=== PATIENT | male | born 1970 | race Caucasian/White ===

== ENCOUNTER 2017-12-14 21:24 | Emergency (ER) | payer MEDICAID ==
[~2017-12-14] VITALS: Ht 185.4 cm; Wt 81.6 kg
[~2017-12-14 21:24] MED LIST: SULF1TAB48 PO
[2017-12-15] MEDS ORDERED: hydrALAZINE HCL 10 MG TABLET PO ONE
--- NOTE | 2017-12-15 | NUR ---
BIBSELF C/O LEFT FOOT SWELLING TODAY, WAS D/C 11/28/17 FROM [facility] DX CELLULITIS/HTN. HYPERTENSION BUT OTHERWISE VSS NO ACUTE DISTRESS NOTED AT THIS TIME. SKIN WARM AND INTACT. PT IS ALERT AND ORIENTED X4 ABLE TO MAKE NEEDS KNOWN. WILL CONTINUE TO MONITOR FOR ANY CHANGES DURING THE SHIFT.
--- NOTE | 2017-12-15 00:01 | NUR ---
ER LAITH JARAMILLO AT BEDSIDE FOR EVAL
[2017-12-15] MEDS ORDERED: hydrALAZINE HCL IV 20 MG VIAL ONE (00:11)
--- NOTE | 2017-12-15 00:11 | NUR ---
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
[2017-12-15 00:21] LABS: BASOPHILS # (AUTO) 0.1 /CMM (0.0-0.2); BASOPHILS % (AUTO) 1.2 % (0.0-2.0); EOSINOPHILS % (AUTO) 2.7 % (0.0-6.0); HEMATOCRIT 40 % (39-51); HEMOGLOBIN 13.6 g/dL (13.5-17.5); LYMPHOCYTES # (AUTO) 0.9 /CMM (0.8-4.8); MEAN CORPUSCULAR HGB CONC 34 g/dl (31.0-36.0); MEAN CORPUSCULAR VOLUME 90 fL (80-96); MONOCYTES # (AUTO) 0.5 /CMM (0.1-1.30); MONOCYTES % (AUTO) 10.2 % (2.0-12.0); NEUTROPHILS # (AUTO) 3.2 /CMM (1.8-8.9); NEUTROPHILS % (AUTO) 66.9 % (43.0-81.0); PLATELET COUNT (AUTO) 209 /CMM (150-450); RED BLOOD CELL COUNT(AUTO) 4.45 MIL/uL (4.5-6.0); WHITE BLOOD COUNT (AUTO) 4.8 K/uL (4.3-11.0)
[2017-12-15] MEDS: hydrALAZINE HCL IV 20 MG VIAL IV ONE ×2 (00:31→00:32)
[2017-12-15 00:33] LABS: CALCIUM, SERUM 8.9 mg/dL (8.5-10.1); CREATININE 1.1 mg/dL (0.6-1.3); POTASSIUM 3.5 mmol/L (3.5-5.1)
--- NOTE | 2017-12-15 00:33 | NUR ---
VENOUS DUPLEX AT BEDSIDE
[2017-12-15 00:39] LABS: ALBUMIN 3.5 g/dL (3.4-5.0); BILIRUBIN,DIRECT 0.1 mg/dL (0.0-0.2); BILIRUBIN,TOTAL 0.3 mg/dL (0.2-1.0)
[2017-12-15 01:49] VITALS: BP 178/101
== END 2017-12-15 01:51 | disposition home or self-care (01) ==
LOC: ER 21:24
DX: R60.0 Localized edema (principal); Z60.2 Problems related to living alone
CPT/HCPCS: 36415; 80048-TC; 80076-TC; 85025-TC; 85730-TC; 93971-TC; A4606; J0360; Z7610

== ENCOUNTER 2018-05-16 14:52 | Emergency (ER) | payer SELFPAY ==
[~2018-05-16] VITALS: Ht 185.4 cm; Wt 92.5 kg
[2018-05-16] MEDS ORDERED: CEFTRIAXONE 1GM BAG (ER ONLY) 50 ML IV ONE (15:30)
[2018-05-16 15:49] LABS: BASOPHILS # (AUTO) 0.1 /CMM (0.0-0.2); BASOPHILS % (AUTO) 0.9 % (0.0-2.0); EOSINOPHILS % (AUTO) 1.2 % (0.0-6.0); HEMATOCRIT 40 % (39-51); HEMOGLOBIN 13.4 g/dL (13.5-17.5); LYMPHOCYTES # (AUTO) 0.9 /CMM (0.8-4.8); LYMPHOCYTES % (AUTO) 15.5 % (20.0-44.0); MEAN CORPUSCULAR HGB CONC 34 g/dl (31.0-36.0); MEAN CORPUSCULAR VOLUME 89 fL (80-96); MONOCYTES # (AUTO) 0.3 /CMM (0.1-1.30); MONOCYTES % (AUTO) 5.6 % (2.0-12.0); NEUTROPHILS # (AUTO) 4.7 /CMM (1.8-8.9); NEUTROPHILS % (AUTO) 76.8 % (43.0-81.0); PLATELET COUNT (AUTO) 225 /CMM (150-450); RED BLOOD CELL COUNT(AUTO) 4.45 MIL/uL (4.5-6.0); WHITE BLOOD COUNT (AUTO) 6.1 K/uL (4.3-11.0)
[2018-05-16 15:56] LABS: CALCIUM, SERUM 8.9 mg/dL (8.5-10.1); CREATININE 0.9 mg/dL (0.6-1.3); POTASSIUM 3.7 mmol/L (3.5-5.1)
--- NOTE | 2018-05-16 16:01 | NUR ---
ADDENDUM: Intravenous End Time Documentation: Rocephin 1 gram IVPB: start time: 1601 pm; end time: 1631 pm IV site: [facility] 18 Port # 1
[2018-05-16 16:02] LABS: ALBUMIN 3.4 g/dL (3.4-5.0); BILIRUBIN,DIRECT 0.1 mg/dL (0.0-0.2); BILIRUBIN,TOTAL 0.4 mg/dL (0.2-1.0); TOTAL PROTEIN, SERUM 7.6 g/dL (6.4-8.2)
[2018-05-16] MEDS ORDERED: BACITRACIN ZINC OINT PACKET 1 EA PACKET TP ONE (16:30)
[2018-05-16 16:58] VITALS: BP 170/100
--- NOTE | 2018-05-16 16:58 | NUR ---
DR HULL MADE AWARE OF PT'S RECENT B/P.
== END 2018-05-16 19:59 | disposition home or self-care (01) ==
LOC: ER 14:56
DX: L03.116 Cellulitis of left lower limb (principal); Z59.0 Homelessness
CPT/HCPCS: 36415; 80048; 80076; 85025; 85730; 87040 ×2; 87070; 87077; 87186; 93971; 96365; 99284; J0696

== ENCOUNTER 2018-05-25 11:00 | Outpatient (CLI) | payer SELFPAY | END 2018-05-25 23:59 | disposition home or self-care (01) | LOC: WOU 11:00 | PROVIDERS: ATTEND Podiatrist Foot & Ankle Surgery | DX: I87.312 Chronic venous hypertension (idiopathic) with ulcer of left lower extremity (principal); L97.823 Non-pressure chronic ulcer of other part of left lower leg with necrosis of muscle; M79.662 Pain in left lower leg; I10 Essential (primary) hypertension | CPT/HCPCS: 11042; A6402 ×2 ==

== ENCOUNTER 2018-06-02 11:35 | Outpatient (CLI) | payer SELFPAY | END 2018-06-02 23:59 | disposition home or self-care (01) | LOC: WOU 11:35 | PROVIDERS: ATTEND Podiatrist Foot & Ankle Surgery | DX: I87.312 Chronic venous hypertension (idiopathic) with ulcer of left lower extremity (principal); L97.823 Non-pressure chronic ulcer of other part of left lower leg with necrosis of muscle; M79.662 Pain in left lower leg; I10 Essential (primary) hypertension | CPT/HCPCS: 11042 ==